=== PATIENT | male | born 1990 | race African-American/Black ===

== ENCOUNTER 2024-02-21 14:51 | Inpatient (IN) | payer OTHER ==
[~2024-02-21] VITALS: Ht 185.4 cm; Wt 58.1 kg
[2024-02-21 22:15] VITALS: BP 124/80; TEMP 98.2; O2SAT 100
[2024-02-21] MEDS ORDERED: ONDANSETRON HCL/PF 4 MG/2 ML VIAL IVP PRN (23:00)
[2024-02-22] MEDS: IV LR 1000 ML 1,000 ML IV SCH (00:08)
[2024-02-22] MEDS: MORPHINE SULFATE INJ 4 MG/ML DISP.SYRIN IV PRN (01:58)
[2024-02-22 06:49] LABS: BASOPHILS % (AUTO) 0.3 % (0.0-2.0); EOSINOPHILS % (AUTO) 0.1 % (0.0-6.0); HEMATOCRIT 37 % (39-51); HEMOGLOBIN 12.3 g/dL (13.5-17.5); LYMPHOCYTES # (AUTO) 1.4 K/uL (0.8-4.8); LYMPHOCYTES % (AUTO) 11.6 % (20.0-44.0); MEAN CORPUSCULAR HEMOGLOBIN 30 PG (26.0-33.0); MEAN CORPUSCULAR HGB CONC 33 g/dl (31.0-36.0); MEAN CORPUSCULAR VOLUME 89 fL (80-96); MONOCYTES # (AUTO) 1.2 K/uL (0.1-1.30); MONOCYTES % (AUTO) 9.8 % (2.0-12.0); NEUTROPHILS # (AUTO) 9.4 K/uL (1.8-8.9); NEUTROPHILS % (AUTO) 78.2 % (43.0-81.0); PLATELET COUNT (AUTO) 204 K/uL (150-450); RED BLOOD CELL COUNT(AUTO) 4.15 MIL/uL (4.5-6.0); RED CELL DISTRIBUTION WIDTH 13.3 % (11.5-15.0)
[2024-02-22 07:20] LABS: CALCIUM, SERUM 9.3 mg/dL (8.5-10.1); CREATININE 0.9 mg/dL (0.6-1.3); MAGNESIUM 2.9 mg/dL (1.8-2.4); PHOSPHORUS 4.1 mg/dL (2.5-4.9); POTASSIUM 3.8 mmol/L (3.5-5.1)
[2024-02-22] MEDS ORDERED: HYDR-4303 PO (07:38)
[2024-02-22] MEDS ORDERED: THIA100T70 PO (07:38)
[2024-02-22] MEDS ORDERED: MULT-225 PO (07:38)
[2024-02-22] MEDS ORDERED: FOLI0.4T6 PO (07:38)
[2024-02-22] MEDS ORDERED: DOCU100T2 PO (07:38)
[2024-02-22] MEDS ORDERED: ONDA4TAB5 PO (07:38)
[2024-02-22] MEDS ORDERED: ACET-868 PO (07:38)
[2024-02-22] MEDS: IV LR 1000 ML 1,000 ML IV PRN (07:57)
[2024-02-22] MEDS: PANTOPRAZOLE 40 MG VIAL IV SCH (08:03)
[2024-02-22] MEDS ORDERED: AMOX-430 PO (12:26)
[2024-02-22] MEDS ORDERED: CEFTRIAXONE 1 G in IV D5W 50 ML IV SCH (18:00)
== END 2024-02-22 15:16 | disposition home or self-care (01) | DRG 282 ==
LOC: MED 22:02
PROVIDERS: ATTEND Internal Medicine
DX: K85.20 Alcohol induced acute pancreatitis without necrosis or infection (principal); F10.10 Alcohol abuse, uncomplicated; N39.0 Urinary tract infection, site not specified; B96.89 Other specified bacterial agents as the cause of diseases classified elsewhere; F12.10 Cannabis abuse, uncomplicated; Y90.9 Presence of alcohol in blood, level not specified
CPT/HCPCS: 36415; 80048-TC; 83690-TC; 83735-TC; 84100-TC; 85025-TC; 87081-TC; A4223; G0378; J0696; J2270; J2470; J7060; J7120